=== PATIENT | female | born 1945 | race Caucasian/White ===

== ENCOUNTER → 2017-01-26 | Outpatient (CLI) | payer MEDICARE ==
[~2017-01-26] MED LIST: BLOOD PRESSURE PO; CHOLESTEROL MAN1 TAB PO; CIPRO 500MG TA500 MG PO; EFFEXOR XR150 MG PO; LISINOPRIL HCTZ1 TAB PO; PRAVASTATIN SOD20 MG PO; PYRIDIUM 200MG200 MG PO; SPIRIVA HA1 PUFF/INH IH
[2017-01-26 16:28] LABS: LYMPH # 2.3 K/mm3 (0.7-4.5); LYMPH % 35.5 % (10-50.0)
[2017-01-26 19:08] LABS: BUN 14 mg/dL (7-18); GFR (ESTIMATED) 54 ML/MIN (59-)
[2017-01-30 20:38] LABS: 1,25-Dihydroxy, Vitamin D-2 <10 pg/mL (.); 1,25-Dihydroxy, Vitamin D-3 44 pg/mL (.); Total 1,25-Dihydroxy,Vitamin D 44 pg/mL (.)
== END ==
LOC: LAB 15:56
PROVIDERS: Nurse Practitioner Family
DX: E11.9 Type 2 diabetes mellitus without complications (principal); E03.8 Other specified hypothyroidism